=== PATIENT | female | born 1970 | race Caucasian/White ===

== ENCOUNTER 2019-12-20 10:17 | Outpatient (REF) | payer OTHER, SELFPAY ==
[2019-12-20 12:39] LABS: Vitamin D 25-OH Total 29.2 ng/mL (>30)
== END 2019-12-20 10:18 | disposition home or self-care (01) ==
LOC: HO.LAB 10:17
PROVIDERS: PCP Physician Assistant; Visit Provider Surgery
DX: E55.9 Vitamin D deficiency, unspecified (principal)
CPT/HCPCS: 82306

== ENCOUNTER → 2019-12-21 14:22 | Outpatient (BNVA) | payer OTHER, SELFPAY | PROVIDERS: PCP Physician Assistant; Visit Provider Surgery | DX: E66.3 Overweight (principal); Z68.27 Body mass index [BMI] 27.0-27.9, adult; Z90.3 Acquired absence of stomach [part of]; Z71.3 Dietary counseling and surveillance | CPT/HCPCS: 99214 ==

== ENCOUNTER → 2020-03-22 08:43 | Outpatient (BNVA) | payer OTHER, SELFPAY | PROVIDERS: PCP Physician Assistant; Referring Provider Physician Assistant; Visit Provider Physician Assistant ==

== ENCOUNTER → 2020-06-04 08:10 | Outpatient (BNVA) | payer OTHER, SELFPAY | PROVIDERS: PCP Physician Assistant; Visit Provider Dietitian, Registered ==

== ENCOUNTER → 2020-08-23 10:32 | Outpatient (BNVA) | payer OTHER, SELFPAY | PROVIDERS: PCP Physician Assistant; Visit Provider Physician Assistant | DX: E66.9 Obesity, unspecified (principal); Z90.3 Acquired absence of stomach [part of]; Z68.30 Body mass index [BMI] 30.0-30.9, adult | CPT/HCPCS: 99212 ==

== ENCOUNTER 2020-09-07 10:36 | Outpatient (REF) | payer OTHER, SELFPAY ==
[2020-09-07 11:04] LABS: MANUAL DIFF FLAG NO
[2020-09-07 11:06] LABS: Basophils Percent Auto 0.5 % (0-2); Eosinophils Percent Auto 0.3 % (0-4); Hematocrit 37.3 % (37-47); Hemoglobin 11.8 g/dl (12.0-16.0); Imm Gran Abs Auto 0.02 X10*3/uL (0.00-0.03); Imm Gran Pct Auto 0.3 % (0.0-0.4); Lymphocytes Absolute Auto 1.8 X10*3/uL (1.2-4.9); Lymphocytes Percent Auto 29.4 % (20-40); Mean Corpuscular HGB Conc 31.6 g/dl (31.0-35.0); Mean Corpuscular Hemoglobin 22.8 pg (27.0-33.0); Mean Corpuscular Volume 72.1 fL (80-98); Monocytes Absolute Auto 0.3 X10*3/uL (0.1-1.2); Monocytes Percent Auto 5.5 % (2-11); Platelet Count 259 X10*3/uL (160-400); Red Blood Count 5.17 X10*6/uL (4.20-5.50); Red Cell Distribution Width 14.9 % (11.0-16.0); White Blood Count 6.2 X10*3/uL (4.8-10.8)
[2020-09-07 11:28] LABS: Alanine Aminotransferase 10 U/L (0-31); Albumin Level 4.1 g/dL (3.5-5.0); Alkaline Phosphatase 58 U/L (39-117); Anion Gap 14 (12-20); Aspartate Amino Transferase 18 U/L (5-31); Blood Urea Nitrogen 14 mg/dL (9-16); C Reactive Protein 0.08 mg/dL (< or = 0.50); Calcium 9.5 mg/dL (8.4-10.2); Carbon Dioxide 26 mmol/L (22-29); Chloride 106 mmol/L (96-108); Cholesterol 161 mg/dL; Estimated Glomerular Filt Rate > 60; Glucose Fasting 93 mg/dL (60-99); HDL Cholesterol 71 mg/dL; Iron 102 mcg/dL (30-160); LDL Cholesterol Calculated 79 mg/dl; Percent Iron Saturation 30 % (15-50); Potassium 4.5 mmol/L (3.3-5.1); Sodium 141 mmol/L (135-145); Total Iron Binding Capacity 343 mcg/dL (228-428); Total Protein 6.8 g/dL (6.5-8.0); Triglycerides 59 mg/dL; Unsaturated Iron Binding 241 ug/dL
[2020-09-07 11:51] LABS: Estimated Average Glucose 97 mg/dL
[2020-09-07 11:53] LABS: Ferritin 43 ng/mL (10-250); TSH reflex Free T4 2.02 uIU/mL (0.32-4.0); Vitamin D 25-OH Total 21.7 ng/mL (>30)
[2020-09-09 04:55] LABS: Folate 19.6 ng/mL (> or = 4.0); Vitamin B12 348 pg/mL (200-900)
[2020-09-09 17:17] LABS: Insulin Level Total 6.5 uIU/mL
[2020-09-10 02:31] LABS: Zinc 63 mcg/dL (60-130)
[2020-09-10 08:38] LABS: Calcium (PTHI) 9.5 mg/dL (8.6-10.4); PTHI 53 pg/mL (14-64)
[2020-09-11 14:56] LABS: Vitamin A 34 mcg/dL (38-98); Vitamin B1 14 nmol/L (8-30)
== END 2020-09-07 10:37 | disposition home or self-care (01) ==
LOC: HO.LAB 10:36
PROVIDERS: PCP Physician Assistant; Visit Provider Physician Assistant
DX: E66.01 Morbid (severe) obesity due to excess calories (principal); Z68.30 Body mass index [BMI] 30.0-30.9, adult; Z90.3 Acquired absence of stomach [part of]
CPT/HCPCS: 36415; 80053; 80061; 82306; 82607; 82728; 82746; 83036; 83525; 83540; 83970; 84425; 84443; 84590; 84630; 85025; 86140

== ENCOUNTER 2020-11-05 10:23 | Outpatient (REF) | payer OTHER, SELFPAY ==
[2020-11-05 13:14] LABS: Bilirubin Direct 0.5 mg/dL (0.0-0.5); Bilirubin Total 1.3 mg/dL (0.0-1.0)
[2020-11-05 13:36] LABS: Vitamin D 25-OH Total 41.7 ng/mL (>30)
[2020-11-12 20:22] LABS: Vitamin A 41 mcg/dL (38-98)
== END 2020-11-05 10:24 | disposition home or self-care (01) ==
LOC: HO.LAB 10:23
PROVIDERS: Physician Assistant; PCP Physician Assistant; Visit Provider Surgery
DX: E66.3 Overweight (principal); Z68.29 Body mass index [BMI] 29.0-29.9, adult; R17 Unspecified jaundice; Z90.3 Acquired absence of stomach [part of]; Z71.3 Dietary counseling and surveillance
CPT/HCPCS: 36415; 82247; 82248; 82306; 84590; 99212

== ENCOUNTER → 2021-07-25 12:54 | Outpatient (BNVA) | payer BC, SELFPAY | PROVIDERS: PCP Physician Assistant; Referring Provider Surgery; Visit Provider Physician Assistant Surgical | DX: Z13.89 Encounter for screening for other disorder (principal) ==

== ENCOUNTER 2021-08-16 10:39 | Outpatient (REF) | payer BC, SELFPAY ==
[2021-08-16 10:54] LABS: MANUAL DIFF FLAG NO
[2021-08-16 11:08] LABS: Basophils Percent Auto 0.7 % (0-2); Eosinophils Percent Auto 0.9 % (0-4); Hematocrit 34.2 % (37.0-47.0); Hemoglobin 10.5 g/dl (12.0-16.0); Imm Gran Abs Auto 0.01 X10*3/uL (0.00-0.03); Imm Gran Pct Auto 0.2 % (0.0-0.4); Lymphocytes Absolute Auto 1.6 X10*3/uL (1.2-4.9); Lymphocytes Percent Auto 35.4 % (20-40); Mean Corpuscular HGB Conc 30.7 g/dl (31.0-35.0); Mean Corpuscular Hemoglobin 21.8 pg (27.0-33.0); Mean Corpuscular Volume 71.1 fL (80.0-98.0); Mean Platelet Volume 11.1 fL (9.4-12.3); Monocytes Absolute Auto 0.3 X10*3/uL (0.1-1.2); Monocytes Percent Auto 6.6 % (2-11); Neutrophils Absolute Auto 2.5 x10*3/uL (2.0-8.3); Neutrophils Percent Auto 56.2 % (45-73); Platelet Count 212 X10*3/uL (160-400); Red Blood Count 4.81 X10*6/uL (4.20-5.50); Red Cell Distribution Width 15.2 % (11.0-16.0); White Blood Count 4.5 X10*3/uL (4.8-10.8)
[2021-08-16 11:30] LABS: Anion Gap 11 (12-20); Blood Urea Nitrogen 20 mg/dL (9-16); C Reactive Protein 0.06 mg/dL (< or = 0.50); Calcium 9.6 mg/dL (8.4-10.2); Carbon Dioxide 29 mmol/L (22-29); Chloride 107 mmol/L (96-108); Cholesterol 154 mg/dL; Estimated Glomerular Filt Rate > 60; Glucose Random 85 mg/dL (60-115); HDL Cholesterol 69 mg/dL; Iron 81 mcg/dL (30-160); LDL Cholesterol Calculated 75 mg/dl; Percent Iron Saturation 20 % (15-50); Potassium 4.3 mmol/L (3.3-5.1); Sodium 143 mmol/L (135-145); Total Iron Binding Capacity 412 mcg/dL (228-428); Triglycerides 54 mg/dL; Unsaturated Iron Binding 331 ug/dL
[2021-08-16 11:33] LABS: Blood Urea Nitrogen 20 mg/dL (9-16); Estimated Glomerular Filt Rate > 60
[2021-08-16 11:47] LABS: Estimated Average Glucose 103 mg/dL; Hemoglobin A1c % 5.2 %
[2021-08-16 11:52] LABS: Ferritin 7 ng/mL (10-250); Insulin 6 uU/mL (2-29); TSH reflex Free T4 1.86 uIU/mL (0.32-4.0); Vitamin D 25-OH Total 25.2 ng/mL (>30)
[2021-08-18 06:34] LABS: Folate 17.6 ng/mL (> or = 4.0); Vitamin B12 386 pg/mL (200-900)
[2021-08-19 13:57] LABS: Calcium (PTHI) 9.5 mg/dL (8.6-10.4); PTHI 60 pg/mL (16-77)
[2021-08-21 00:41] LABS: Vitamin A 30 mcg/dL (38-98)
[2021-08-21 02:46] LABS: Zinc 68 mcg/dL (60-130)
[2021-08-21 15:47] LABS: Vitamin B1 16 nmol/L (8-30)
== END 2021-08-16 10:40 | disposition home or self-care (01) ==
LOC: HO.LAB 10:39
PROVIDERS: Absent Provider Physician Assistant Surgical; PCP Physician Assistant; Visit Provider Radiology Vascular & Interventional Radiology
DX: R79.89 Other specified abnormal findings of blood chemistry (principal); R94.4 Abnormal results of kidney function studies
CPT/HCPCS: 36415; 80048; 80061; 82306; 82565; 82607; 82728; 82746; 83036; 83525; 83540; 83970; 84425; 84443; 84520; 84590; 84630; 85025; 86140

== ENCOUNTER → 2022-06-24 14:33 | Outpatient (BNVA) | payer BC, SELFPAY | PROVIDERS: PCP Physician Assistant; Visit Provider Physician Assistant Surgical | DX: Z13.89 Encounter for screening for other disorder (principal) ==

== ENCOUNTER 2022-07-15 09:22 | Outpatient (REF) | payer BC, SELFPAY ==
[2022-07-15 09:42] LABS: MANUAL DIFF FLAG NO
[2022-07-15 10:23] LABS: Basophils Percent Auto 0.8 % (0-2); Eosinophils Absolute Auto 0.1 X10*3/uL (0.0-0.4); Eosinophils Percent Auto 1.5 % (0-4); Hematocrit 34.2 % (37.0-47.0); Hemoglobin 10.4 g/dl (12.0-16.0); Imm Gran Abs Auto 0.02 X10*3/uL (0.00-0.03); Imm Gran Pct Auto 0.4 % (0.0-0.4); Lymphocytes Absolute Auto 1.6 X10*3/uL (1.2-4.9); Lymphocytes Percent Auto 34.5 % (20-40); Mean Corpuscular HGB Conc 30.4 g/dl (31.0-35.0); Mean Corpuscular Hemoglobin 21.4 pg (27.0-33.0); Mean Corpuscular Volume 70.4 fL (80.0-98.0); Mean Platelet Volume 11.4 fL (9.4-12.3); Monocytes Absolute Auto 0.3 X10*3/uL (0.1-1.2); Monocytes Percent Auto 6.1 % (2-11); Neutrophils Absolute Auto 2.7 x10*3/uL (2.0-8.3); Neutrophils Percent Auto 56.7 % (45-73); Platelet Count 239 X10*3/uL (160-400); Red Blood Count 4.86 X10*6/uL (4.20-5.50); Red Cell Distribution Width 15.1 % (11.0-16.0); White Blood Count 4.7 X10*3/uL (4.8-10.8)
[2022-07-15 10:52] LABS: Estimated Average Glucose 100 mg/dL; Hemoglobin A1c % 5.1 %
[2022-07-15 11:04] LABS: Alanine Aminotransferase 13 U/L (0-31); Alkaline Phosphatase 60 U/L (39-117); Anion Gap 9 (12-20); Aspartate Amino Transferase 24 U/L (5-31); Bilirubin Total 1.4 mg/dL (0.0-1.0); Blood Urea Nitrogen 13 mg/dL (9-16); C Reactive Protein < 0.10 mg/dL (< or = 0.50); Calcium 9.3 mg/dL (8.4-10.2); Carbon Dioxide 30 mmol/L (22-29); Chloride 109 mmol/L (96-108); Cholesterol 161 mg/dL; Estimated Glomerular Filt Rate > 60; Glucose Random 84 mg/dL (60-115); HDL Cholesterol 70 mg/dL; Iron 77 mcg/dL (30-160); LDL Cholesterol Calculated 83 mg/dl; Percent Iron Saturation 22 % (15-50); Potassium 4.8 mmol/L (3.3-5.1); Sodium 143 mmol/L (135-145); Total Iron Binding Capacity 348 mcg/dL (228-428); Total Protein 6.5 g/dL (6.5-8.0); Triglycerides 41 mg/dL; Unsaturated Iron Binding 271 ug/dL
[2022-07-15 11:44] LABS: Ferritin 5 ng/mL (10-250); Folate 14.7 ng/mL (> or = 4.0); TSH reflex Free T4 1.72 uIU/mL (0.32-4.0); Vitamin B12 459 pg/mL (200-900); Vitamin D 25-OH Total 24.5 ng/mL (>30)
[2022-07-15 12:17] LABS: Insulin 4 uU/mL (2-29)
[2022-07-17 16:33] LABS: Calcium (PTHI) 9.4 mg/dL (8.6-10.4); PTHI 66 pg/mL (16-77)
[2022-07-21 16:52] LABS: Zinc 76 mcg/dL (60-130)
[2022-07-22 14:59] LABS: Vitamin B1 <6 nmol/L (8-30)
[2022-07-23 16:59] LABS: Vitamin A 32 mcg/dL (38-98)
== END 2022-07-15 09:23 | disposition home or self-care (01) ==
LOC: HO.LAB 09:22
PROVIDERS: Visit Provider Physician Assistant Surgical
DX: K91.2 Postsurgical malabsorption, not elsewhere classified (principal); Z90.3 Acquired absence of stomach [part of]
CPT/HCPCS: 36415; 80053; 80061; 82306; 82607; 82728; 82746; 83036; 83525; 83540; 83970; 84425; 84443; 84590; 84630; 85025; 86140

== ENCOUNTER 2022-11-05 12:20 | Outpatient (AMB) | payer BC, SELFPAY ==
--- NOTE | 2022-11-05 12:25 | A.OFFVIS_ITS ---
Intake VS Expanded 11/05/22 12:28 Height 5 ft 4 in Weight 173 lb 6.4 oz BMI 29.8 Blood Pressure Location Rt brachial Blood Pressure Position Sitting Pulse 60 Pulse Source Pulse Oximeter Temp 97.6 F Temperature Source Temporal Artery Scan Pulse Oximetry 100 Oxygen Delivery Method Room Air Body Fat 59.6 Body Fat Percentage 34.4 Free Fat Mass 113.8 Muscle Mass 108.0 Visceral Mass 8.0 Water Mass 81.0 BMR 1,538 Intake Visit Reasons: (OV) POM LSG 10/31/2017 Allergies No Known Allergies [No Known Allergies*] Allergy (Verified 06/24/22 14:40) Medication List - Last Reconciled 11/05/22 by MITCH Hager biotin 1 mg PO DAILY calcium citrate-vitamin D3 250 mg-5 mcg (200 unit) 2 tabs PO BID cholecalciferol (vitamin D3) 25 mcg PO DAILY furosemide 20 mg PO DAILY inulin 2 grams PO DAILY mecobalamin (vitamin B12) 1,000 mcg PO DAILY omeprazole 20 mg PO DAILY HPI HPI Comments History of Present Illness Details This?is a?52?yo female who is s/p LSG with lap band removal by Dr. Godron puentes 10/31/2017. Presents for 5 year post op visit. Weight at last visit on 06/24/2022 was 175.6 pounds with a BMI of 30.1, weight today is 173.4 pounds, representing a 2.2 pound weight loss with a BMI today of 29.8.? No complaints of nausea, emesis, abdominal pain or reflux, or constipation. Present meal plan includes: wakes at 4am coffee with light cream or milk 10:30am [place] yogurt with 12g-15g protei n, with a few aminata crackers sometimes and berries may have some green grapes during the day 2:30pm Lunchable with turkey, cheese, cr ackers or part of a can of tuna with tomatoes/onions/lettuce 4:30pm Celsius energy drink before the g ym Premier protein shake after the gym around 8pm occasional cheese for a snack, may also occasionally have 2HB eggs with hot dog at last visit suggested adding a protein bar/snack to get closer to goal of 70- 75g protein/day Exercise routine includes: gym, 10 min cardio bike or treadmill or elliptical, then weights- 4x/week Did the patient ever have any of these conditions and are they resolved or still being treated? GERD: omeprazole MANUEL:? never DM:? resolved, will have episodes of hypoglycemia if she is not careful with what she eats HTN:? resolved Hyperlipidemia:?never Post op complications:? none PFSH Medical History Anemia BMI 30.0-30.9,adult Depression Hypertension Hypothyroidism Obesity (BMI 30.0-34.9) Overweight (BMI 25.0-29.9) Type 2 diabetes mellitus Vitamin D deficiency Surgical History History of breast augmentation Other specified postprocedural states History of sleeve gastrectomy History of laparoscopic adjustable gastric banding Family History Father Renal failure Rheumatoid arthritis Type 2 diabetes mellitus Mother CVA (cerebral vascular accident) HTN (hypertension) Brother S/P CABG (coronary artery bypass graft) Brother No problems noted. Sister No problems noted. Son No problems noted. Social History Alcohol intake: current Alcohol intake frequency: holidays/special occasions only Patient Tobacco Use Status: Former Tobacco user Physical Exam Vital Signs: Last Vital Signs Temp 97.6 F 11/05/22 12:28 Pulse 60 11/05/22 12:28 Pulse Ox 100 11/05/22 12:28 Oxygen Delivery Method Room Air 11/05/22 12:28 BMI result Body Mass Index 29.8 Const General: cooperative, comfortable and no acute distress Orientation/consciousness: patient oriented x3 GI Other: soft, nontender, nondistended, incisions well healed, no hernia, no masses Neuro General: patient oriented x3 Assessment & Plan Assessment & Plan (1) Overweight (BMI 25.0-29.9): Code(s): E66.3 - Overweight (2) History of sleeve gastrectomy: Comment: Laparoscopic removal of gastric band with conversion to sleeve gastrectomy - 11/10/2017 Code(s): Z90.3 - Acquired absence of stomach [part of] Plan Tanita results reviewed today; pt is very close to healthy body fat % and has high muscle mass. Encouraged her to ensure adequate protein intake daily. Reviewed labs previously drawn. Insurance did not cover several of her prescriptions so we discussed what she needs currently- vit A, B1, D. She did not tolerate VitronC well but has tolerated ferrous sulfate in the past so will order that. RTC 6 months per pt preference. Patient is overweight and is not considered stable at this time. I spent a total of 30 minutes reviewing/updating records, examining the patient and counseling the patient on weight management as detailed above. Medications: New ferrous sulfate 325 mg PO DAILY 90 tabs 3RF Refilled vitamin A palmitate 10,000 units PO DAILY 90 caps 3RF thiamine HCl (vitamin B1) 100 mg PO DAILY 90 tabs 3RF Coding Level of Care Code Est Pt Level 4 (70785) Diagnoses Overweight (BMI 25.0-29.9) E66.3 History of sleeve gastrectomy Z90.3
[2022-11-05 12:28] VITALS: PULSE 60; TEMP 36.4; O2SAT 100; BMI 29.8
== END 2022-11-05 13:22 | disposition home or self-care (01) ==
PROVIDERS: PCP Physician Assistant; Visit Provider Physician Assistant Surgical
DX: E66.3 Overweight (principal); Z68.29 Body mass index [BMI] 29.0-29.9, adult; Z90.3 Acquired absence of stomach [part of]; Z98.84 Bariatric surgery status
CPT/HCPCS: 99214

== ENCOUNTER → 2022-11-05 12:20 | Outpatient (BNVA) | payer BC, SELFPAY | PROVIDERS: PCP Physician Assistant; Visit Provider Physician Assistant Surgical ==

== ENCOUNTER 2023-05-06 13:47 | Outpatient (AMB) | payer BC, SELFPAY ==
--- NOTE | 2023-05-06 13:36 | A.OFFVIS_ITS ---
Intake Intake Visit Reasons: (TELEPHONE) POM LSG 10/31/2017 Allergies No Known Allergies [No Known Allergies*] Allergy (Verified 06/24/22 14:40) Medication List - Last Reconciled 05/06/23 by MITCH Hager biotin 1 mg PO DAILY calcium citrate-vitamin D3 250 mg-5 mcg (200 unit) 2 tabs PO BID cholecalciferol (vitamin D3) 25 mcg PO DAILY ferrous sulfate 325 mg PO DAILY furosemide 20 mg PO DAILY inulin (Children's Fiber Select Gummies) 1.5 grams PO DAILY mecobalamin (vitamin B12) 1,000 mcg PO DAILY omeprazole 20 mg PO DAILY thiamine HCl (vitamin B1) 100 mg PO DAILY vitamin A palmitate 10,000 units PO DAILY HPI HPI Comments History of Present Illness Details This?is a?53?yo female who is s/p LSG with lap band removal 10/31/[address] Irvni. Presents for 5.5 year post op visit. Weight at last visit on 11/05/2022 was 173.4 pounds with a BMI of 29.8, weight today is same? No complaints of nausea, emesis, abdominal pain or reflux, or constipation. Present meal plan includes: wakes at 4am coffee with light cream or milk 10:30am [place] yogurt with 12g-15g protei n, with a few aminata crackers sometimes and berries may have some green grapes during the day 2:30pm Lunchable with turkey, cheese, cr ackers or part of a can of tuna with tomatoes/onions/lettuce 4:30pm Celsius energy drink before the ym Premier protein shake after the gym around 8pm occasional cheese for a snack, may also occasionally have 2HB eggs with hot dog previously suggested adding a protein bar/snack to get closer to goal of 70-75g protein/day thinks she is low on protein some days Exercise routine includes: gym, 10 min cardio bike or treadmill or elliptical, then weights- 4x/week [facility] Medical History Anemia BMI 30.0-30.9,adult Depression Hypertension Hypothyroidism Obesity (BMI 30.0-34.9) Overweight (BMI 25.0-29.9) Type 2 diabetes mellitus Vitamin D deficiency Surgical History History of breast augmentation Other specified postprocedural states History of sleeve gastrectomy History of laparoscopic adjustable gastric banding Family History Father Renal failure Rheumatoid arthritis Type 2 diabetes mellitus Mother CVA (cerebral vascular accident) HTN (hypertension) Brother S/P CABG (coronary artery bypass graft) Brother No problems noted. Sister No problems noted. Son No problems noted. Social History Alcohol intake: current Alcohol intake frequency: holidays/special occasions only Patient Tobacco Use Status: Former Tobacco user Assessment & Plan Assessment & Plan (1) History of sleeve gastrectomy: Comment: Laparoscopic removal of gastric band with conversion to sleeve gastrectomy - 11/10/2017 Code(s): Z90.3 - Acquired absence of stomach [part of] (2) Overweight (BMI 25.0-29.9): Code(s): E66.3 - Overweight Plan Pt is happy with current meal plan and at current weight. Be sure to get adequate protein each day. Continue current vitamin regimen. Will order labs to be drawn in a month or so and can adjust vitamin regimen if needed based on results. RTC 6 months per pt preference. Patient is overweight and is not considered stable at this time. I spent a total of 30 minutes reviewing/updating records, examining the patient and counseling the patient on weight management as detailed above. Orders: Orders Insulin Today Z90.3 - Acquired absence of stomach [part of] Zinc Today Z90.3 - Acquired absence of stomach [part of] TSH reflex Free T4 Today Z90.3 - Acquired absence of stomach [part of] Hemoglobin A1c Today Z90.3 - Acquired absence of stomach [part of] Complete Blood Count Auto Diff Today Z90.3 - Acquired absence of stomach [part of] Lipid Panel Today Z90.3 - Acquired absence of stomach [part of] IRON PROFILE Today Z90.3 - Acquired absence of stomach [part of] Comprehensive Met. Panel Today Z90.3 - Acquired absence of stomach [part of] Vitamin B12 and Folate Today Z90.3 - Acquired absence of stomach [part of] C Reactive Protein Today Z90.3 - Acquired absence of stomach [part of] Vitamin B1 Today Z90.3 - Acquired absence of stomach [part of] Vitamin A Today Z90.3 - Acquired absence of stomach [part of] Ferritin Today Z90.3 - Acquired absence of stomach [part of] Vitamin D 25-OH Total Today Z90.3 - Acquired absence of stomach [part of] Telehealth Telehealth Location of provider rendering services: practice address Location of patient: address on file Patient Identification confirmed using: Name, : Yes Telehealth method: voice only Patient verbally consented to treatment: Yes Patient verbally consented to billing insurance company: Yes Patient informed of any privacy concerns related to visit: Yes Minutes spent on Phone/Video with Pt.: 12 Coding Level of Care Code Tele Est Pt Level 4 (07681) Diagnoses History of sleeve gastrectomy Z90.3 Overweight (BMI 25.0-29.9) E66.3
== END 2023-05-06 13:54 | disposition home or self-care (01) ==
LOC: HO.HBS 13:47
PROVIDERS: PCP Physician Assistant; Visit Provider Physician Assistant Surgical
DX: E66.3 Overweight (principal); Z68.29 Body mass index [BMI] 29.0-29.9, adult; Z90.3 Acquired absence of stomach [part of]; Z98.84 Bariatric surgery status
CPT/HCPCS: 99442

== ENCOUNTER → 2023-05-06 13:47 | Outpatient (BNVA) | payer BC, SELFPAY | PROVIDERS: PCP Physician Assistant; Visit Provider Physician Assistant Surgical | DX: Z90.3 Acquired absence of stomach [part of] (principal) ==

== ENCOUNTER 2023-09-22 09:39 | Outpatient (REF) | payer BC, SELFPAY ==
[2023-09-22 09:59] LABS: MANUAL DIFF FLAG NO
[2023-09-22 10:39] LABS: Basophils Percent Auto 0.7 % (0-2); Eosinophils Percent Auto 0.7 % (0-4); Hematocrit 35.8 % (37.0-47.0); Hemoglobin 10.9 g/dl (12.0-16.0); Lymphocytes Absolute Auto 1.6 X10*3/uL (1.2-4.9); Lymphocytes Percent Auto 34.3 % (20-40); Mean Corpuscular HGB Conc 30.4 g/dl (31.0-35.0); Mean Corpuscular Hemoglobin 21.8 pg (27.0-33.0); Mean Corpuscular Volume 71.7 fL (80.0-98.0); Mean Platelet Volume 10.6 fL (9.4-12.3); Monocytes Absolute Auto 0.3 X10*3/uL (0.1-1.2); Monocytes Percent Auto 6.2 % (2-11); Neutrophils Absolute Auto 2.7 x10*3/uL (2.0-8.3); Neutrophils Percent Auto 58.1 % (45-73); Platelet Count 234 X10*3/uL (160-400); Red Blood Count 4.99 X10*6/uL (4.20-5.50); Red Cell Distribution Width 15.7 % (11.0-16.0); White Blood Count 4.6 X10*3/uL (4.8-10.8)
[2023-09-22 11:13] LABS: Estimated Average Glucose 105 mg/dL; Hemoglobin A1c % 5.3 % (<6.0)
[2023-09-22 12:06] LABS: Alanine Aminotransferase 11 U/L (0-31); Albumin Level 4.1 g/dL (3.5-5.0); Alkaline Phosphatase 65 U/L (39-117); Anion Gap 13 (12-20); Aspartate Amino Transferase 20 U/L (5-31); Bilirubin Total 1.3 mg/dL (0.0-1.0); Blood Urea Nitrogen 14 mg/dL (9-16); Calcium 9.6 mg/dL (8.4-10.2); Carbon Dioxide 28 mmol/L (22-29); Chloride 106 mmol/L (96-108); Cholesterol 156 mg/dL (<200); Estimated Glomerular Filt Rate > 60; Glucose Random 80 mg/dL (60-115); HDL Cholesterol 67 mg/dL (>40); Iron 96 mcg/dL (30-160); LDL Cholesterol Calculated 80 mg/dL (<100); Percent Iron Saturation 29 % (15-50); Potassium 4.1 mmol/L (3.3-5.1); Sodium 143 mmol/L (135-145); Total Iron Binding Capacity 327 mcg/dL (228-428); Triglycerides 49 mg/dL (<150); Unsaturated Iron Binding 231 ug/dL
[2023-09-22 12:39] LABS: Folate 14.1 ng/mL (> or = 4.0); Vitamin B12 414 pg/mL (200-900)
[2023-09-22 12:43] LABS: Ferritin 12 ng/mL (10-250); TSH reflex Free T4 1.54 uIU/mL (0.32-4.0); Vitamin D 25-OH Total 29.8 ng/mL (>30)
[2023-09-22 13:03] LABS: Insulin 3 uU/mL (2-29)
[2023-09-25 17:08] LABS: Zinc 75 mcg/dL (60-130)
[2023-09-28 01:34] LABS: Vitamin B1 9 nmol/L (8-30)
[2023-09-29 01:18] LABS: Vitamin A 27 mcg/dL (38-98)
== END 2023-09-22 09:40 | disposition home or self-care (01) ==
LOC: HO.LAB 09:39
PROVIDERS: Visit Provider Physician Assistant Surgical
DX: Z90.3 Acquired absence of stomach [part of] (principal); Z13.1 Encounter for screening for diabetes mellitus
CPT/HCPCS: 36415; 80053; 80061; 82306; 82607; 82728; 82746; 83036; 83525; 83540; 84425; 84443; 84590; 84630; 85025; 86140

== ENCOUNTER 2025-01-03 08:51 | Outpatient (REF) | payer BC, SELFPAY ==
[2025-01-03 09:10] LABS: MANUAL DIFF FLAG NO
[2025-01-03 09:51] LABS: Hematocrit 33.3 % (37.0-47.0); Hemoglobin 10.2 g/dl (12.0-16.0); Imm Gran Abs Auto 0.01 X10*3/uL (0.00-0.03); Imm Gran Pct Auto 0.2 % (0.0-0.4); Lymphocytes Absolute Auto 1.3 X10*3/uL (1.2-4.9); Mean Corpuscular HGB Conc 30.6 g/dl (31.0-35.0); Mean Corpuscular Hemoglobin 22.1 pg (27.0-33.0); Mean Corpuscular Volume 72.1 fL (80.0-98.0); NRBC Abs Auto 0.000 X10*3/uL (0.0-0.012); NRBC Pct Auto 0.0 /100WBC (0.0-0.2); Platelet Count 254 X10*3/uL (160-400); Red Blood Count 4.62 X10*6/uL (4.20-5.50); White Blood Count 4.1 X10*3/uL (4.8-10.8)
[2025-01-03 10:23] LABS: Alanine Aminotransferase 21 U/L (0-31); Albumin Level 4.2 g/dL (3.5-5.0); Alkaline Phosphatase 64 U/L (39-117); Anion Gap 7 (12-20); Aspartate Amino Transferase 25 U/L (5-31); Blood Urea Nitrogen 16 mg/dL (9-16); Calcium 9.1 mg/dL (8.4-10.2); Carbon Dioxide 31 mmol/L (22-29); Chloride 110 mmol/L (96-108); Cholesterol 167 mg/dL (<200); Estimated Glomerular Filt Rate > 60; HDL Cholesterol 67 mg/dL (>40); Iron 95 mcg/dL (30-160); Percent Iron Saturation 32 % (15-50); Potassium 4.7 mmol/L (3.3-5.1); Sodium 143 mmol/L (135-145); Total Iron Binding Capacity 296 mcg/dL (228-428); Total Protein 6.5 g/dL (6.5-8.0); Triglycerides 60 mg/dL (<150); Unsaturated Iron Binding 201 ug/dL
[2025-01-03 10:54] LABS: Ferritin 20 ng/mL (10-250)
[2025-01-03 11:13] LABS: Folate 13.0 ng/mL (> or = 4.0); Vitamin B12 1355 pg/mL (200-900)
== END 2025-01-03 08:52 | disposition home or self-care (01) ==
LOC: HO.LAB 08:51
PROVIDERS: PCP Physician Assistant; Visit Provider Physician Assistant Surgical
DX: Z13.1 Encounter for screening for diabetes mellitus (principal); Z13.29 Encounter for screening for other suspected endocrine disorder; E66.3 Overweight; Z90.3 Acquired absence of stomach [part of]
CPT/HCPCS: 36415; 80053; 80061; 82306; 82607; 82728; 82746; 83036; 83525; 83540; 84425; 84443; 84590; 84630; 85025; 86140